=== PATIENT | female | born 1965 | race Caucasian/White ===

== ENCOUNTER → 2017-09-22 08:44 | Outpatient (CLI) | payer OTHER, SELFPAY ==
[2017-09-22 09:17] LABS: Absolute Lymphocyte Count 2.07 X10^3/ul (0.83-4.51); Basophil# 0.04 X10^3/uL; Basophil% 0.8 % (0-1); Eosinophils% 4.2 % (0-5); Hematocrit 44.2 % (37-47); Lymphocyte # 2.07 X10^3/ul (4.0); Lymphocyte % 43.8 % (19-41); Mean Corp Hgb Conc 31.7 g/gl (32-36); Mean Corpuscular Hgb 29.3 pg (27.0-32.0); Mean Corpuscular Volume 92.5 fL (81-99); Mean Platelet Vol. 10.2 fl (6.2-12.0); Monocyte# 0.39 X10^3/uL; Monocyte% 8.2 % (0-10); Neutrophil # 2.03 X10^3/uL (2.7-7.7); Platelet Count 272 K/mm3 (150-450); RBC Distribution Width CV 13.5 % (11.6-14.6); RBC Distribution Width SD 45.9 fl (35.1-43.9); Red Blood Count 4.78 M/mm3 (4.2-5.4); White Blood Count 4.7 K/mm3 (4.4-11.0)
[2017-09-22 09:26] LABS: POSITIVE COUNT NO; POSITIVE DIFFERENTIAL NO; POSITIVE MORPHOLOGY NO
[2017-09-22 09:27] LABS: Color, Urine Yellow (Yellow); Glucose, Dipstick Normal (Normal); Ketone-Dipstick Negative (Negative); Leukocyte Esterase-Dipstick 100 /ul (Negative); Nitrite-Dipstick Negative (Negative); Occult Blood-Urine Negative /ul (Negative); Protein-Dipstick Negative (Negative); Specific Gravity, Urine 1.015 (1.002-1.030); Urine Bilirubin Dipstick Negative (Negative); Urine Clarity Clear (Clear); Urine Urobilinogen Normal (Normal)
[2017-09-22 09:35] LABS: AST(SGOT) 21 U/L (15-37); Alanine Aminotransfer ALT/SGPT 34 U/L (13-56); Albumin, Serum 3.6 g/dL (3.2-5.0); Alkaline Phosphatase 87 U/L (45-117); Anion Gap 9 (5-15); BUN 15 mg/dL (7-18); BUN/Creat Ratio 20.6 RATIO (10-20); Calcium,Total 8.8 mg/dL (8.5-10.1); Chloride 102 mmol/L (98-107); Cholesterol 193 mg/dL (200); Creatinine, Serum 0.73 mg/dL (0.55-1.02); EST Glomerular Filtration Rate 89 mL/min (>60); Est Glom Filt Rate - Afr Amer 108 mL/min (>60); Globulin 3.6 g/dL (2.2-4.2); Glucose 86 mg/dL (74-106); High Density Lipoprotein 52 mg/dL; Potassium 4.1 mmol/L (3.5-5.1); Protein, Total 7.2 g/dL (6.4-8.2); Sodium Level 140 mmol/L (136-145); Triglycerides 148 mg/dL; Very Low Density Lipoprotein 30 mg/dL (5-40)
== END ==
PROVIDERS: Family Provider Family Medicine; PCP Family Medicine; Visit Provider Family Medicine
DX: Z00.00 Encounter for general adult medical examination without abnormal findings (principal)
CPT/HCPCS: 36415; 80053; 80061; 81002; 85025

== ENCOUNTER → 2017-11-22 08:33 | Outpatient (CLI) | payer OTHER, SELFPAY ==
--- NOTE | 2017-11-22 08:35 | BI_ITS ---
MAMMOGRAPHY - BILATERAL SCREENING REASON FOR EXAM: Female, 52 years old. Routine annual screening examination. PERTINENT HISTORY: Non-contributory. TECHNIQUE: Digital bilateral breast kimberly (3D mammographic acquisition) in the CC and MLO projections. 2-D mediolateral oblique (MLO) and craniocaudad (CC) views of both breasts were obtained. CAD: Full Field Digital Mammography with Computer Added Detection was performed. COMPARISON: Comparison is made with prior study dated November 19, 2016 and June 30, 2010. FINDINGS: Breast Composition: There are scattered areas of fibroglandular density. There are no dominant masses or suspicious calcifications. No other significant abnormalities are identified. There has been no significant change since the prior study. BI/SCREENING MAMM (CAD), BILAT IMPRESSION: Stable bilateral screening mammogram. Yearly follow-up mammogram recommended. (A) ASSESSMENT CATEGORY: BIRADS Category 1: Negative. A letter regarding these results will be sent to the patient by the facility within 30 days. Approximately 10% of breast cancers are not detected by mammography. A normal mammogram should not delay biopsy of a clinically suspicious abnormality. [id number] Electronically Signed: Alfie Cook MD at 10:03 EDT Tel [phone], Service support ,
== END ==
PROVIDERS: Family Provider Family Medicine; PCP Family Medicine; Visit Provider Family Medicine
DX: Z12.31 Encounter for screening mammogram for malignant neoplasm of breast (principal)
CPT/HCPCS: 77063; 77067

== ENCOUNTER 2017-12-14 05:55 | Day surgery (SDC) | payer OTHER, SELFPAY ==
[2017-12-14] VITALS (7 sets, daily range): BP systolic 109–145; BP diastolic 70–83; PULSE 62–65; RESP 16–18; TEMP 36.2–36.6; O2SAT 94–96; BMI 32.0
--- NOTE | 2017-12-14 07:30 | LES_PTH ---
PATIENT: DONNA SAVAGE LOC: [facility] [place][id number] AGE/SX: 52/F ROOM: RE12/14/[address]: Dr. Rubén Marinelli MD : 1965 BED: DIS: 12/14/2017 SPEC #: [id number] RECD: 12/14/17 10:23 STATUS: BEVERLY REJami #: [id number] MARLO: 12/14/17 07:[address]: Rubén Marinelli DEPT: SURGICAL PATHOLOGY RECD BY: Abilio Perrin ENTERED: 12/14/17 11:46 SP TYPE: Lesion OTHR DR: Dr. Albert Johnson MD Tissues: A - Skin of external ear, NOS B - Skin of external ear, NOS Procedures: Surgery Specimen Level III HEADER OPERATION: Excision lesion bilateral ears PRE-OP DIAGNOSIS: Bilateral ear lesions TISSUE SUBMITTED: A ? Left ear lesion, B ? Right ear lesion MICROSCOPIC DIAGNOSIS A. Left ear lesion, biopsy: Pieces of skin with underlying tissue with dermal fibrosis consistent with hypertrophic scar/keloid. B. Right ear lesion, biopsy: Pieces of skin with underlying tissue with dermal fibrosis consistent with hypertrophic scar/keloid. KALYAN:kayode 12/15/17 MICROSCOPIC DESCRIPTION Slides are reviewed. GROSS DESCRIPTION A - Received in fixative is one container labeled with the patient's name and designated left ear lesion. The specimen consists of three irregular fragments of brandon-pink skin that in aggregate measure 1.3 x 0.5 x 0.3 cm. The entire specimen is submitted in one cassette. B - Received in fixative is one container labeled with the patient's name and designated right ear lesion. The specimen consists of two pieces of brandon soft tissue that in aggregate measure 1 x 0.5 x 0.3 cm. The specimen is totally submitted in one cassette. / KALYAN:kayode 12/14/17 TC:5 CPT: 64647 x2
[2017-12-14] MEDS: Mupirocin Ointment 22gm Tube 1 APPLIC (08:11)
--- NOTE | 2017-12-14 08:32 | PCM.OPRPT ---
Problem List (1) Ear cysts Status: Chronic Report of Operation Date of Procedure: 12/14/17 Pre-Operative Diagnosis: infective cysts of lobule, right and left ears Post-Operative Diagnosis: infective cysts of lobule, right and left ears Surgery/Procedure Performed:: 1. excision ear lesions, right and left. 2. adjacent tissue transfer / complex closure, right and left ears Type of Anesthesia:: Local MAC Description of Procedure: on the day of the procedure, after appropriate informed consent was obtained, the patient was brought to the operating room and placed in supine position on the operating table. she was placed under MAC anesthesia, the right and left lobules were injected with lidocaine/epinephrine. the ears were prepped and draped in sterile fashion. and incision was made in the anterior left lobule, along its superior portion. the cystic, erythematous skin was excised in an elliptical fashion and the cyst was dissected deep and removed. additional cysts were removed as found with an iris scissor. a posterior incision was made in the area of a skin fistula and an additional cyst was removed. this was closed with 5-0 fast gut. the anterior ear tissue was undermined circumferentially and flaps were created for optimal closure. the wound was closed in multilayered fashion with 4-0 PDS and 5-0 prolene. the left ear was retracted and a draining fistula and cyst was resected in an elliptical fashion with a [place] blade and iris scissors. this was closed in multilayered fashion after skin flaps were created with 4-0 PDS and 5-0 prolene. the patient was awoken and transferred to the PACU in stable condition.
--- NOTE | 2017-12-14 08:40 | DCINST_ITS ---
- Discharge Diagnoses Current Active Problems: Current Active and Chronic Problems Ear cysts (Chronic) You will use the following diet at home:: No restrictions Discharge Activity: Return to Normal Activity Call your doctor if your incision/area has: Increased Pain/ Swelling Additional Dressing/Incision Instructions:: tylenol for pain Allergies/Adverse Reactions: Allergies ENVIRONMENTAL Allergy (Uncoded 12/08/17 14:08) Other SNEEZING, WATERY EYES Medications to take at Discharge Clonazepam [Klonopin] 1 mg PO BID PRN PRN 12/08/17 Escitalopram Oxalate [Lexapro] 20 mg PO DAILY 12/08/17 Fluticasone 0.05% [Flonase Nasal [place]] 2 spray NASAL DAILY 12/08/17 Multivitamin [Multiple Vitamins] 1 each PO DAILY 12/08/17 [place]-3 Fatty Acids [Fish Oil] 800 mg PO DAILY 12/08/17 Primary Care Physician: Albert Johnson MD [Primary Care Provider] - Test Results: Test results from this visit will be discussed in further detail at your follow- up appointment, if applicable. Please Follow Up With: Tariq Marinelli MD When: 1 week
[2017-12-14] MEDS: Acetaminophen/Codeine #3 Tablet 1 TABLET PO (09:17)
== END 2017-12-14 09:42 | disposition home or self-care (01) ==
LOC: SDC 05:55 → AC 05:56
PROVIDERS: Family Provider Family Medicine; PCP Family Medicine; Visit Provider Otolaryngology
PROC: (CPT 14060; principal; 2017-12-14 07:20)
DX: H61.893 Other specified disorders of external ear, bilateral (principal); L98.8 Other specified disorders of the skin and subcutaneous tissue; Z79.899 Other long term (current) drug therapy; K58.9 Irritable bowel syndrome, unspecified; L02.03 Carbuncle of face
CPT/HCPCS: 14060; 88304; 88305; J7120

== ENCOUNTER → 2018-10-25 | Outpatient (CLI) | payer OTHER, SELFPAY ==
[2017-12-14 06:12] VITALS: BMI 32.0
[2018-10-25 07:33] LABS: Absolute Neutrophil Count 2.7 X10^3/uL (2.0-7.7); Basophil# 0.03 X10^3/uL; Basophil% 0.5 % (0-1); Eosinophil# 0.31 X10^3/uL; Hematocrit 45.3 % (37-47); Hemoglobin 14.6 g/dl (12.0-15.0); Lymphocyte % 41.8 % (19-41); Mean Corp Hgb Conc 32.2 g/gl (32-36); Mean Corpuscular Hgb 28.7 pg (27.0-32.0); Mean Corpuscular Volume 89.2 fL (81-99); Mean Platelet Vol. 10.2 fl (6.2-12.0); Monocyte# 0.61 X10^3/uL; Monocyte% 9.8 % (0-10); Neutrophil # 2.66 X10^3/uL (2.7-7.7); Neutrophil % 42.7 % (47-70); Platelet Count 303 K/mm3 (150-450); RBC Distribution Width CV 13.6 % (11.6-14.6); Red Blood Count 5.08 M/mm3 (4.2-5.4); White Blood Count 6.2 K/mm3 (4.4-11.0)
[2018-10-25 07:38] LABS: POSITIVE COUNT NO; POSITIVE DIFFERENTIAL NO; POSITIVE MORPHOLOGY NO
[2018-10-25 07:53] LABS: Color, Urine Yellow (Yellow); Glucose, Dipstick Normal (Normal); Ketone-Dipstick Negative (Negative); Leukocyte Esterase-Dipstick 100 /ul (Negative); Nitrite-Dipstick Negative (Negative); Occult Blood-Urine Negative /ul (Negative); Protein-Dipstick Negative (Negative); Urine Bilirubin Dipstick Negative (Negative); Urine Clarity Sl. Cloudy (Clear); Urine Urobilinogen Normal (Normal)
[2018-10-25 08:07] LABS: ALB/GLOB Ratio 1.1 RATIO (0.9-2.4); AST(SGOT) 20 U/L (15-37); Alanine Aminotransfer ALT/SGPT 22 U/L (13-56); Albumin, Serum 3.8 g/dL (3.2-5.0); Alkaline Phosphatase 91 U/L (45-117); Anion Gap 6 (5-15); BUN 10 mg/dL (7-18); BUN/Creat Ratio 12.5 RATIO (10-20); Calcium,Total 8.8 mg/dL (8.5-10.1); Chloride 104 mmol/L (98-107); Cholesterol 201 mg/dL (200); EST Glomerular Filtration Rate 79 mL/min (>60); Est Glom Filt Rate - Afr Amer 96 mL/min (>60); Globulin 3.6 g/dL (2.2-4.2); Glucose 102 mg/dL (74-106); High Density Lipoprotein 41 mg/dL; Potassium 4.1 mmol/L (3.5-5.1); Protein, Total 7.4 g/dL (6.4-8.2); Sodium Level 139 mmol/L (136-145); Triglycerides 183 mg/dL; Very Low Density Lipoprotein 37 mg/dL (5-40)
== END | disposition home or self-care (01) ==
PROVIDERS: Family Provider Family Medicine; PCP Family Medicine; Referring Provider Family Medicine
DX: Z00.00 Encounter for general adult medical examination without abnormal findings (principal)
CPT/HCPCS: 36415; 80053; 80061; 81002; 85025

== ENCOUNTER → 2018-11-23 | Outpatient (CLI) | payer OTHER, SELFPAY ==
[2017-12-14 06:12] VITALS: BMI 32.0
--- NOTE | 2018-11-23 10:18 | BI_ITS ---
MAMMOGRAPHY - BILATERAL SCREENING REASON FOR EXAM: Female, 53 years old. Routine annual screening examination. PERTINENT HISTORY: Non-contributory. TECHNIQUE: Digital bilateral breast attila (3D mammographic acquisition) in the CC and MLO projections. 2-D mediolateral oblique (MLO) and craniocaudad (CC) views of both breasts were obtained. CAD: Full Field Digital Mammography with Computer Added Detection was performed. COMPARISON: Comparison is made with prior study dated November 22, 2017 and November 19, 2016. FINDINGS: Breast Composition: The breasts are almost entirely fatty. There are no dominant masses or suspicious calcifications. No other significant abnormalities are identified. There has been no significant change since the prior study. BI/SCREEN MAMM (CAD) W/ATTILA BILAT IMPRESSION: Stable bilateral screening mammogram. Yearly follow-up mammogram recommended. (A) ASSESSMENT CATEGORY: BIRADS Category 1: Negative. A letter regarding these results will be sent to the patient by the facility within 30 days. Approximately 10% of breast cancers are not detected by mammography. A normal mammogram should not delay biopsy of a clinically suspicious abnormality. [id number] Electronically Signed: Alfie Cook, at 12:32 EDT , Service support ,
== END | disposition home or self-care (01) ==
LOC: OPBI 10:15
PROVIDERS: Family Provider Family Medicine; PCP Family Medicine; Referring Provider Family Medicine; Visit Provider Family Medicine
DX: Z12.31 Encounter for screening mammogram for malignant neoplasm of breast (principal)
CPT/HCPCS: 77063; 77067

== ENCOUNTER → 2019-11-22 07:06 | Outpatient (CLI) | payer OTHER, SELFPAY ==
[2019-11-22 07:36] LABS: Absolute Lymphocyte Count 3.27 X10^3/uL (0.83-4.51); Basophil# 0.03 X10^3/uL; Basophil% 0.5 % (0-1); Eosinophil# 0.22 X10^3/uL; Eosinophils% 3.6 % (0-5); Hematocrit 46.3 % (37-47); Hemoglobin 14.6 g/dL (12.0-15.0); Lymphocyte # 3.27 X10^3/ul (4.0); Lymphocyte % 53.4 % (19-41); Mean Corp Hgb Conc 31.5 g/dL (32-36); Mean Corpuscular Hgb 29.2 pg (27.0-32.0); Mean Corpuscular Volume 92.6 fL (81-99); Mean Platelet Vol. 10.2 fl (6.2-12.0); Monocyte# 0.63 X10^3/uL; Monocyte% 10.3 % (0-10); NRBC Flagged by Analyzer 0 % (0-5); Neutrophil # 1.96 X10^3/uL (2.7-7.7); Platelet Count 286 K/mm3 (150-450); RBC Distribution Width CV 13.2 % (11.6-14.6); RBC Distribution Width SD 44.2 fl (35.1-43.9); White Blood Count 6.1 K/mm3 (4.4-11.0)
[2019-11-22 08:08] LABS: ALB/GLOB Ratio 1.1 RATIO (0.9-2.4); AST(SGOT) 16 U/L (15-37); Alanine Aminotransfer ALT/SGPT 23 U/L (13-56); Albumin, Serum 4.1 g/dL (3.2-5.0); Alkaline Phosphatase 86 U/L (45-117); Anion Gap 6 (5-15); BUN 14 mg/dL (7-18); BUN/Creat Ratio 18.1 RATIO (10-20); Calcium,Total 8.8 mg/dL (8.5-10.1); Chloride 101 mmol/L (98-107); Cholesterol 179 mg/dL (200); Creatinine, Serum 0.77 mg/dL (0.55-1.02); EST Glomerular Filtration Rate 82 mL/min (>60); Est Glom Filt Rate - Afr Amer 99 mL/min (>60); Globulin 3.6 g/dL (2.2-4.2); Glucose 96 mg/dL (74-106); High Density Lipoprotein 39 mg/dL; Potassium 3.4 mmol/L (3.5-5.1); Protein, Total 7.7 g/dL (6.4-8.2); Sodium Level 136 mmol/L (136-145); Triglycerides 158 mg/dL; Very Low Density Lipoprotein 32 mg/dL (5-40)
[2019-11-22 08:28] LABS: Color, Urine Yellow (Yellow); Glucose, Dipstick Normal (Normal); Ketone-Dipstick Negative (Negative); Leukocyte Esterase-Dipstick Negative /ul (Negative); Nitrite-Dipstick Negative (Negative); Occult Blood-Urine Negative /ul (Negative); Protein-Dipstick Negative (Negative); Urine Bilirubin Dipstick Negative (Negative); Urine Clarity Sl. Cloudy (Clear); Urine Urobilinogen Normal (Normal)
== END ==
PROVIDERS: PCP Family Medicine; Referring Provider Family Medicine; Visit Provider Family Medicine
DX: Z00.00 Encounter for general adult medical examination without abnormal findings (principal)
CPT/HCPCS: 36415; 80053; 80061; 81002; 85025

== ENCOUNTER → 2019-11-28 08:04 | Outpatient (CLI) | payer OTHER, SELFPAY ==
[2017-12-14 06:12] VITALS: BMI 32.0
--- NOTE | 2019-11-28 08:06 | BI_ITS ---
MAMMOGRAPHY - BILATERAL SCREENING REASON FOR EXAM: Female, 54 years old. Routine annual screening examination. PERTINENT HISTORY: Non-contributory. TECHNIQUE: Digital bilateral breast attila (3D mammographic acquisition) in the CC and MLO projections. 2-D mediolateral oblique (MLO) and craniocaudad (CC) views of both breasts were obtained. CAD: Full Field Digital Mammography with Computer Added Detection was performed. COMPARISON: Comparison is made with prior study dated November 23, 2018 and November 22, 2017. FINDINGS: Breast Composition: The breasts are almost entirely fatty. There are no dominant masses or suspicious calcifications. No other significant abnormalities are identified. There has been no significant change since the prior study. BI/SCREEN MAMM (CAD) W/ATTILA BILAT IMPRESSION: Stable bilateral screening mammogram. Yearly follow-up mammogram recommended. (A) ASSESSMENT CATEGORY: BIRADS Category 1: Negative. A letter regarding these results will be sent to the patient by the facility within 30 days. Approximately 10% of breast cancers are not detected by mammography. A normal mammogram should not delay biopsy of a clinically suspicious abnormality. [id number] Electronically Signed: Alfie Cook, at 9:21 EDT , Service support ,
== END ==
PROVIDERS: PCP Family Medicine; Referring Provider Family Medicine; Visit Provider Family Medicine
DX: Z12.31 Encounter for screening mammogram for malignant neoplasm of breast (principal)
CPT/HCPCS: 77063; 77067

== ENCOUNTER → 2020-12-10 07:32 | Outpatient (CLI) | payer OTHER, SELFPAY ==
--- NOTE | 2020-12-10 07:36 | BI_ITS ---
MAMMOGRAPHY - BILATERAL SCREENING REASON FOR EXAM: Female, 55 years old. Routine annual screening examination. PERTINENT HISTORY: Non-contributory. TECHNIQUE: Digital bilateral breast attila (3D mammographic acquisition) in the CC and MLO projections. 2-D mediolateral oblique (MLO) and craniocaudad (CC) views of both breasts were obtained. CAD: Full Field Digital Mammography with Computer Added Detection was performed. COMPARISON: Comparison is made with prior study 11/28/2019 and 11/23/2018. FINDINGS: Breast Composition: There are scattered areas of fibroglandular density. There are no dominant masses or suspicious calcifications. Stable benign-appearing bilateral axillary lymph nodes. No other significant abnormalities are identified. There has been no significant change since the prior study. BI/SCRN MAMM (CAD)W/ATTILA BILAT IMPRESSION: Stable bilateral screening mammogram. Yearly follow-up mammogram recommended. (A) ASSESSMENT CATEGORY: BIRADS Category 2: Benign. A letter regarding these results will be sent to the patient by the facility within 30 days. Approximately 10% of breast cancers are not detected by mammography. A normal mammogram should not delay biopsy of a clinically suspicious abnormality. [id number] Electronically Signed: Alfie Cook MD at 8:53 EDT , Service support ,
== END ==
PROVIDERS: PCP Family Medicine; Referring Provider Family Medicine; Visit Provider Family Medicine
DX: Z12.31 Encounter for screening mammogram for malignant neoplasm of breast (principal)
CPT/HCPCS: 77063; 77067

== ENCOUNTER → 2021-01-02 06:59 | Outpatient (CLI) | payer OTHER, SELFPAY ==
[2017-12-14 06:12] VITALS: BMI 32.0
[2021-01-02 08:17] LABS: Hematocrit 46.4 % (37-47); Hemoglobin 14.7 g/dL (12.0-15.0); Mean Corp Hgb Conc 31.7 g/dL (32-36); Mean Corpuscular Hgb 28.1 pg (27.0-32.0); Mean Corpuscular Volume 88.5 fL (81-99); Platelet Count 305 K/mm3 (150-450); RBC Distribution Width CV 13.4 % (11.6-14.6); RBC Distribution Width SD 43.6 fl (35.1-43.9); Red Blood Count 5.24 M/mm3 (4.2-5.4); White Blood Count 6.4 K/mm3 (4.4-11.0)
[2021-01-02 08:44] LABS: ALB/GLOB Ratio 1.2 RATIO (0.9-2.4); AST(SGOT) 28 U/L (15-37); Alanine Aminotransfer ALT/SGPT 53 U/L (13-56); Albumin, Serum 4.1 g/dL (3.2-5.0); Alkaline Phosphatase 88 U/L (45-117); Anion Gap 6 (5-15); BUN 12 mg/dL (7-18); BUN/Creat Ratio 20.3 RATIO (10-20); Calcium,Total 9.1 mg/dL (8.5-10.1); Chloride 102 mmol/L (98-107); Cholesterol 240 mg/dL (200); Creatinine, Serum 0.59 mg/dL (0.55-1.02); EST Glomerular Filtration Rate 112 mL/min (>60); Est Glom Filt Rate - Afr Amer 135 mL/min (>60); Globulin 3.5 g/dL (2.2-4.2); Glucose 92 mg/dL (74-106); High Density Lipoprotein 41 mg/dL; Potassium 3.8 mmol/L (3.5-5.1); Protein, Total 7.6 g/dL (6.4-8.2); Sodium Level 139 mmol/L (136-145); Triglycerides 189 mg/dL; Very Low Density Lipoprotein 38 mg/dL (5-40)
== END ==
PROVIDERS: PCP Family Medicine; Referring Provider Family Medicine; Visit Provider Family Medicine
DX: Z12.31 Encounter for screening mammogram for malignant neoplasm of breast (principal); Z13.6 Encounter for screening for cardiovascular disorders
CPT/HCPCS: 36415; 80053; 80061; 85025; 85027

== ENCOUNTER 2021-03-01 14:26 | Emergency (ER) | payer OTHER, SELFPAY ==
[2021-03-01 14:27] VITALS: BP 145/89; PULSE 80; RESP 18; TEMP 36.4; O2SAT 98; BMI 31.7
--- NOTE | 2021-03-01 15:21 | CT_ITS ---
STUDY: CT CERVICAL SPINE WITHOUT CONTRAST REASON FOR EXAM: Female, 56 years old. trauma RADIATION DOSAGE (If Supplied By Facility): CTDIvol = ( 16.21 ) mGy, DLP = ( 257.98 ) mGycm TECHNIQUE: The patient was scanned in a multi detector CT scanner. High resolution transaxial imaging was performed. Sagittal and coronal images were reconstructed. Individualized dose optimization techniques were used for this CT. COMPARISON: None FINDINGS: There is straightening of the normal cervical lordosis. There are no demonstrated fractures of the cervical spine. There is multilevel endplate spondylosis of the vertebrae. There is multi-level degenerative disc disease with multi-level disc space narrowing. Normal visualized paraspinous soft tissue structures. CT/Spine Cervical without Contras IMPRESSION: No demonstrated fractures. Multilevel degenerative changes. Electronically Signed: Maritza Arita MD at 15:55 EDT Tel , Service support ,
--- NOTE | 2021-03-01 15:21 | RAD_ITS ---
STUDY: X-RAY - THORACIC SPINE REASON FOR EXAM: Female, 56 years old. trauma TECHNIQUE: 3 view(s) of the thoracic spine were obtained. COMPARISON: None. FINDINGS: Normal kyphosis of the thoracic spine. There is no substantial scoliosis. There is multilevel endplate spondylosis of the thoracic vertebrae. There is multilevel disc space narrowing of the thoracic spine. RAD/Thoracic Spine 3 Views IMPRESSION: No demonstrated fractures Electronically Signed: Maritza Ariat MD at 16:04 EDT Tel , Service support ,
--- NOTE | 2021-03-01 15:45 | EDS_ITS ---
HPI HPI - Fall History of Present Illness Chief Complaint: Fall Informant: patient Narrative Narrative: Patient was standing on a ladder. It was wooden and the rungs broke. She fell backwards and landed on her back. Rolled up on her neck. She has an abrasion of her left gonzales but states it does not really hurt and she can bear weight easily. She has an abrasion on the back of the left shoulder but motion is fine. She does have some soreness in her upper thoracic back in the lower part of her neck. No headache. She never lost consciousness. She is on no blood thinners. She has never had numbness tingling or weakness distally. No trouble breathing. Motion makes a little bit worse and rest makes it better. PFSH PFSH Medical History no medical history Home Medications clonazepam 1 mg PO BID PRN PRN 12/08/17 [History Last Taken 12/14/17 05:00] escitalopram oxalate 20 mg PO DAILY 12/08/17 [History Last Taken Unknown] fluticasone propionate 2 spray NASAL DAILY 12/08/17 [History Last Taken Unknown] multivitamin [Multiple Vitamins] 1 ea PO DAILY 12/08/17 [History Last Taken Unknown] omega 3-dnp-xza-fish oil [Fish Oil] 800 mg PO DAILY 12/08/17 [History Last Taken Unknown] Allergy/AdvReac Type Severity Reaction Status Date / Time ENVIRONMENTAL Allergy Other Uncoded 03/01/21 14:56 Social History Smoking Status: Never smoker ROS ROS ED Constitutional Constitutional ED: Denies fever(s) or subjective Eyes Eyes: Denies blurry vision or change in vision ENT ENT ED: Denies rhinorrhea Cardiovascular Cardiovascular: Denies chest pain or palpitations Respiratory/Chest Respiratory/Chest: Denies cough or dyspnea Gastrointestinal Gastrointestinal: Denies abdominal pain, nausea or vomiting Genitourinary Genitourinary ED: Denies hematuria Musculoskeletal Musculoskeletal: Reports back pain and neck pain Integumentary Reports Abrasions Neurologic Neurologic: Denies headache(s), paresthesias or weakness Hematologic/Lymphatic Hematologic/Lymphatic: Denies easy bleeding or easy bruising Allergic/Immunologic Allergic/Immunologic ED: Denies urticaria EXAM Physical Exam Const Vital Signs: 03/01/21 14:27 03/01/21 14:57 Temperature 97.6 F L Temperature Source Temporal Pulse Rate 80 Respiratory Rate 18 Respiratory Effort Normal Non-Labored Blood Pressure 145/89 H Blood Pressure Mean 107 Pulse Ox 98 Oxygen Delivery Method Room Air Positive well nourished and well developed General Appearance ED: well developed and NAD HEENT Reports normocephalic atraumatic; Negative for trauma or tenderness Eyes General Eye ED: Negative for scleral icterus Neck no lymphadenopathy Neck Narrative: Patient does have mild tenderness at the lower cervical spine. This includes middle as well as both sides. No deformity. Chest Wall inspection of chest normal and palpation of chest normal Resp normal respiratory effort and clear to auscultation bilaterally Cardio regular rate, regular rhythm and no murmurs GI non-tender and non-distended Palpation: soft Back/Spine no CVA tenderness Back/Spine Narrative: Patient does have some mild tenderness diffusely in the upper thoracic spine. No step-off or crepitance. No abrasion or contusion at this time. Extremity Extremity Narrative: Abrasion to anterior left gonzales but no tenderness or defo rmity. There is an abrasion to the back of the upper portion of the shoulder but her range of motion is good. No bony tenderness. No scapular tenderness. Neuro oriented x3 Sensorium / Orientation: alert Psych mental status grossly normal Skin Trauma: abrasion MDM MDM MDM Narrative Medical decision making narrative: CT of the neck and thoracic spine x-ray showed no acute fracture. Patient will use ice rest [id number] meds. If she develops any worsening or new areas of pain, numbness tingling, trouble breathing or other concern she should return. Radiography Diagnostic Testing: Clinical Impression(s) from Imaging Studies Cervical Spine CT 03/01/21 15:21 IMPRESSION: No demonstrated fractures. Multilevel degenerative changes. Electronically Signed: Maritza Arita MD at 15:55 EDT Tel , Service support , Thoracic Spine X-Ray 03/01/21 15:21 IMPRESSION: No demonstrated fractures Electronically Signed: Maritza Arita MD at 16:04 EDT Tel , Service support , Discharge Plan Triage Chief Complaint: Fall ED Provider: Jamaal Hebert Dx/Rx/DC Orders Clinical Impression: Fall from ladder, Cervical muscle strain, Strain of thoracic spine Instructions: ED Back Sprain/Strain Prescriptions: No Action multivitamin [Multiple Vitamins] 1 EACH tablet 1 ea PO DAILY RF: 0 clonazepam 1 MG tablet 1 mg PO BID PRN PRN (Reason: Anxiety) RF: 0 fluticasone propionate 1 SPRAY Nasal.Sry 2 spray NASAL DAILY RF: 0 escitalopram oxalate 20 MG tablet 20 mg PO DAILY RF: 0 omega 6-vhy-adx-fish oil [Fish Oil] 500 MG Capsule.Dr 800 mg PO DAILY RF: 0 Primary Care Provider: Albert Johnson Referrals: Albert Johnson MD [Primary Care Provider] - 3-5 Days if not improving Disposition Disposition: Home, Self Care
[2021-03-01 17:12] VITALS: PULSE 75; RESP 18; O2SAT 95
== END 2021-03-01 17:14 | disposition home or self-care (01) ==
PROVIDERS: Emergency Provider Emergency Medicine; PCP Family Medicine
DX: S16.1XXA Strain of muscle, fascia and tendon at neck level, initial encounter (principal); S29.012A Strain of muscle and tendon of back wall of thorax, initial encounter; S40.212A Abrasion of left shoulder, initial encounter; S80.812A Abrasion, left lower leg, initial encounter; W11.XXXA Fall on and from ladder, initial encounter; Y93.9 Activity, unspecified; Y92.9 Unspecified place or not applicable; Y99.9 Unspecified external cause status; Z79.899 Other long term (current) drug therapy
CPT/HCPCS: 72072; 72125; 99282

== ENCOUNTER → 2022-01-01 | Outpatient (CLI) | payer OTHER, SELFPAY ==
--- NOTE | 2022-01-01 08:13 | BI_ITS ---
MAMMOGRAPHY - BILATERAL SCREENING REASON FOR EXAM: Female, 56 years old. Routine annual screening examination. PERTINENT HISTORY: Non-contributory. TECHNIQUE: Digital bilateral breast attila (3D mammographic acquisition) in the CC and MLO projections. 2-D mediolateral oblique (MLO) and craniocaudad (CC) views of both breasts were obtained. CAD: Full Field Digital Mammography with Computer Added Detection was performed. COMPARISON: Comparison is made with prior study dated 12/10/2020 and 11/28/2019. FINDINGS: Breast Composition: There are scattered areas of fibroglandular density. There are no dominant masses or suspicious calcifications. No other significant abnormalities are identified. There has been no significant change since the prior study. BI/SCRN MAMM (CAD)W/ATTILA BILAT IMPRESSION: Stable bilateral screening mammogram. Yearly follow-up mammogram recommended. (A) ASSESSMENT CATEGORY: BIRADS Category 1: Negative. A letter regarding these results will be sent to the patient by the facility within 30 days. Approximately 10% of breast cancers are not detected by mammography. A normal mammogram should not delay biopsy of a clinically suspicious abnormality. [id number] Electronically Signed: Alfie Cook MD at 8:44 EDT ,
== END | disposition home or self-care (01) ==
LOC: OPBI 08:11
PROVIDERS: PCP Family Medicine; Visit Provider Family Medicine
DX: Z12.31 Encounter for screening mammogram for malignant neoplasm of breast (principal)
CPT/HCPCS: 77063; 77067

== ENCOUNTER → 2022-01-15 | Outpatient (CLI) | payer OTHER, SELFPAY ==
[2022-01-15 07:21] LABS: Absolute Lymphocyte Count 3.23 X10^3/uL (0.83-4.51); Absolute Neutrophil Count 3.5 X10^3/uL (2.0-7.7); Basophil# 0.05 X10^3/uL; Basophil% 0.6 % (0-1); Eosinophil# 0.42 X10^3/uL; Eosinophils% 5.4 % (0-5); Hematocrit 43.7 % (37-47); Hemoglobin 14.1 g/dL (12.0-15.0); Lymphocyte # 3.23 X10^3/ul (0.83-4.51); Lymphocyte % 41.2 % (19-41); Mean Corp Hgb Conc 32.3 g/dL (32-36); Mean Corpuscular Hgb 28.7 pg (27.0-32.0); Mean Corpuscular Volume 88.8 fL (81-99); Mean Platelet Vol. 9.9 fl (6.2-12.0); Monocyte# 0.67 X10^3/uL; Monocyte% 8.5 % (0-10); NRBC Flagged by Analyzer 0 % (0-5); Neutrophil # 3.45 X10^3/uL (2.7-7.7); Platelet Count 292 K/mm3 (150-450); RBC Distribution Width CV 13.5 % (11.6-14.6); Red Blood Count 4.92 M/mm3 (4.2-5.4); White Blood Count 7.8 K/mm3 (4.4-11.0)
[2022-01-15 07:47] LABS: ALB/GLOB Ratio 1.1 RATIO (0.9-2.4); AST(SGOT) 19 U/L (15-37); Alanine Aminotransfer ALT/SGPT 26 U/L (13-56); Albumin, Serum 3.7 g/dL (3.2-5.0); Alkaline Phosphatase 90 U/L (45-117); Anion Gap 4 (5-15); BUN 12 mg/dL (7-18); BUN/Creat Ratio 17.7 RATIO (10-20); Calcium,Total 9.2 mg/dL (8.5-10.1); Chloride 105 mmol/L (98-107); Cholesterol 193 mg/dL (200); Creatinine, Serum 0.68 mg/dL (0.55-1.02); EST Glomerular Filtration Rate 95 mL/min (>60); Est Glom Filt Rate - Afr Amer 115 mL/min (>60); Globulin 3.4 g/dL (2.2-4.2); Glucose 101 mg/dL (74-106); High Density Lipoprotein 40 mg/dL; Potassium 3.8 mmol/L (3.5-5.1); Protein, Total 7.1 g/dL (6.4-8.2); Sodium Level 138 mmol/L (136-145); Triglycerides 211 mg/dL; Very Low Density Lipoprotein 42 mg/dL (5-40)
== END | disposition home or self-care (01) ==
LOC: LAB 07:00
PROVIDERS: PCP Family Medicine; Referring Provider Family Medicine; Visit Provider Family Medicine
DX: I10 Essential (primary) hypertension (principal); E78.2 Mixed hyperlipidemia
CPT/HCPCS: 36415; 80053; 80061; 85025

== ENCOUNTER → 2023-04-06 | Outpatient (CLI) | payer OTHER, SELFPAY ==
--- NOTE | 2023-04-06 12:32 | BI_ITS ---
MAMMOGRAPHY - BILATERAL SCREENING REASON FOR EXAM: Female, 58 years old. Routine annual screening examination. PERTINENT HISTORY: Non-contributory. TECHNIQUE: Digital bilateral breast attila (3D mammographic acquisition) in the CC and MLO projections. 2-D mediolateral oblique (MLO) and craniocaudad (CC) views of both breasts were obtained. CAD: Full Field Digital Mammography with Computer Added Detection was performed. COMPARISON: Comparison is made with prior study dated January 01, 2022 and December 10, 2020. FINDINGS: Breast Composition: There are scattered areas of fibroglandular density. There are no dominant masses or suspicious calcifications. Stable fat-containing bilateral axillary lymph nodes. No other significant abnormalities are identified. There has been no significant change since the prior study. BI/SCRN MAMM (CAD)W/ATTILA BILAT IMPRESSION: Stable bilateral screening mammogram. Yearly follow-up mammogram recommended. (A) ASSESSMENT CATEGORY: BIRADS Category 2: Benign. A letter regarding these results will be sent to the patient by the facility within 30 days. Approximately 10% of breast cancers are not detected by mammography. A normal mammogram should not delay biopsy of a clinically suspicious abnormality. [id number] Electronically Signed: Alfie Cook MD at 13:32 EST ,
== END | disposition home or self-care (01) ==
LOC: OPBI 12:31
PROVIDERS: PCP Family Medicine; Referring Provider Family Medicine; Visit Provider Family Medicine
DX: Z12.31 Encounter for screening mammogram for malignant neoplasm of breast (principal)
CPT/HCPCS: 77063; 77067

== ENCOUNTER → 2024-04-14 | Outpatient (CLI) | payer OTHER, SELFPAY | END | disposition home or self-care (01) | LOC: OPBI 12:39 | PROVIDERS: PCP Family Medicine; Referring Provider Family Medicine; Visit Provider Family Medicine | DX: Z12.31 Encounter for screening mammogram for malignant neoplasm of breast (principal) | CPT/HCPCS: 77063; 77067 ==

== ENCOUNTER 2025-03-02 06:00 | Day surgery (SDC) | payer OTHER, SELFPAY ==
[2025-03-02] VITALS (8 sets, daily range): BP systolic 90–133; BP diastolic 42–73; PULSE 63–68; RESP 12–20; TEMP 36.1–36.3; O2SAT 95–100; BMI 29.8
[2025-03-02] MEDS: Lactated Ringers 1,000 ML 15 ML IV (06:24)
--- NOTE | 2025-03-02 06:31 | PCM.PRE.AN2 ---
ASA Classification* ASA Classification ASA Classification: 2 Assessment & Plan Anesthesia* Anesthesia Assessment Anesthesia Assessment: Discussed sedation and/or anesthesia options, risks, benefits, and alternatives with patient/parents/legal guardian/POA. Questions invited. The patient/parents/legal guardian/POA seems to understand and agrees to proceed with anesthesia plan. Reviewed the physical assessment, medical history, allergy history and patient home medications list prior to surgery/procedure/anesthetic and documented any changes. Performed airway and anesthesia risk assessments. Anesthesia Type Anesthesia Type: MAC History Source History Obtained from:: Patient and Chart Anesthesia Focused Assessment* Temperature: 97 F Pulse Rate: 65 Blood Pressure: 133/73 Respiratory Rate: 16 Pulse Ox: 98 Oxygen Delivery Method: Room Air Airway Assessment Mouth opens: >3 cm Mallampati Score: II Teeth Condition: Intact Neck Range of motion (ROM): Full ROM Labs Anesthesia Preop lab: CBC WBC, (4.4-11.0) 7.8 K/mm3 01/15/22, 07:03 RBC, (4.2-5.4) 4.92 M/mm3 01/15/22, 07:03 Hgb, (12.0-15.0) 14.1 g/dL 01/15/22, 07:03 Hct, (37-47) 43.7 % 01/15/22, 07:03 Plt Count, (150-450) 292 K/mm3 01/15/22, 07:03 CHEMISTRY Potassium, (3.5-5.1) 3.8 mmol/L 01/15/22, 07:03 Sodium, (136-145) 138 mmol/L 01/15/22, 07:03 BUN, (7-18) 12 mg/dL 01/15/22, 07:03 Creatinine, (0.55-1.02) 0.68 mg/dL 01/15/22, 07:03 Glucose, (74-106) 101 mg/dL 01/15/22, 07:03 TSH, (0.358-3.74) 4.06 uIU/mL H 10/23/16, 07:01 COAG Pre-Assessment Diagnosis/Proposed Procedure Planned Operative Procedure(s): COLONOSCOPY Anesthesia History 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 When Was Last Pacemaker Check QUESTION #4 FULL TEXT: You/Your Family Experience fever (hyperthermia) with Anesthesia Last Oral Intake Last Oral intake: Last Oral Intake NPO since 03:30 03/02/25 06:22 Meds taken in AM with sips of Yes 03/02/25 06:22 water? Meds patient instructed to take am of surgery Any additional information?: Yes NPO since: 03:15 (Patient finished prep at 3:15 AM.) Meds taken in AM with sips of water?: Yes PONV PONV - victorian literature professor: PONV - victorian literature professor Female Yes 02/26/25 10:45 HX of Motion Sickness No 02/26/25 10:45 HX of N/V After Surgery Yes 02/26/25 10:45 Non-Smoker Yes 02/26/25 10:45 Duration of Surgery greater No 02/26/25 10:45 than 60 minutes Number of Risk Factors 3 02/26/25 10:45 PONV Score Moderate Risk 02/26/25 10:45 Height & Weight Height & Weight: Anesthesia: Height & Weight Height 5 ft 4 in 03/02/25 06:22 Weight: 78.8 kg 03/02/25 06:22 Body Mass Index (BMI) 29.8 03/02/25 06:22 Respiratory Assessment Respiratory Assessment - victorian literature professor: Respiratory Tract Infection Hx - victorian literature professor Hx Respiratory Tract Infection No 02/26/25 10:45 STOP Sleep Apnea STOP Sleep Apnea - victorian literature professor: STOP Sleep Apnea - victorian literature professor Hx Hypertension Yes 02/26/25 10:45 Hx Sleep Apnea No 02/26/25 10:45 CPAP BIPAP Do you snore loudly (louder No 02/26/25 10:45 than talking or can be heard Do you often feel tired/ No 02/26/25 10:45 fatigued/ sleepy during daytime? Has anyone observed you stop No 02/26/25 10:45 breathing during sleep? STOP Results Negative 02/26/25 10:45 QUESTION #5 FULL TEXT : Do you snore loudly (louder than talking or can be heard through closed doors)? Tobacco Use History Tobacco Use History - victorian literature professor: Tobacco Use History - victorian literature professor Tobacco Use Smoking Status Never smoker 02/26/25 10:45 Hx Tobacco Use No 02/26/25 10:45 Years Smoking Packs Smoked per Day Smoking Cessation Date was within the last 15 years Hx Smoking Cessation Date Hx Smoking Cessation Counseling Hematologic Medial History Hematologic Hx - victorian literature professor: Hematologic Medical Hx - volunteer specialist Hx of Blood Transfusion No 02/26/25 10:45 Hx of Transfusion in last 3 No 02/26/25 10:45 Months Date of Last Transfusion (if within last 3 months) Ever experience any problems No 02/26/25 10:45 with transfusion(s)? Specify any problems Hx of Preganancy in last 3 No 02/26/25 10:45 Months Nurse Filling Out Transfusion VLEHLIGNITE 02/26/25 10:45 & Questions: Date: 02/26/25 02/26/25 10:45 Time: 10:50 02/26/25 10:45 Patient unable to answer at this time (ie. confused, unrespo /Reproduction History /Reproductive History - victorian literature professor: /Reproductive Hx- victorian literature professor Hx Now No 02/26/25 10:45 Gestational Age (in weeks): EDC: Hx Hx Para Hx Section SAB Active Medications Active Medications: Current Medications Generic Name Dose Route Start Last Admin Trade Name Freq PRN Reason Stop Dose Admin Lactated Ringer's 1,000 mls @ 15 mls/hr 03/02/25 06:15 03/02/25 06:24 IV 15 mls/hr .Q48H TIM Administration PFSH Medical History Wears glasses Depression Anxiety Gastric reflux Non-smoker Hypertension Home Medications ?Medication ?Instructions ?Recorded ?Last Taken ?Type fluticasone propionate 50 2 spray DAILY ENVIRONMENTAL 12/08/17 Unknown History mcg/actuation nasal ALLERGIES spray,suspension multivitamin (Multiple Vitamins 1 ea PO DAILY SUPPLEMENT 12/08/17 Unknown History tablet) sertraline 100 mg tablet 100 mg PO Q24H 03/01/21 Unknown History amlodipine 5 mg tablet 5 mg PO DAILY 02/26/25 03/02/25 03:00 History bupropion HCl 150 mg 24 hr tablet, 150 mg PO DAILY 02/26/25 Unknown History extended release olmesartan 20 mg tablet 20 mg PO DAILY 02/26/25 03/02/25 03:00 History quetiapine 25 mg tablet 25 mg PO QHS 02/26/25 Unknown History Allergy/AdvReac Type Severity Reaction Status Date / Time Seasonal Allergies: Uncoded Allergy Other Verified 03/02/25 06:19 (environmental) Surgical History History of hysterectomy History of D&C History of oophorectomy No history of previous surgery Social History Smoking Status: Never smoker Review of Systems (Anesthesia) ROS Narrative System reviewed and no additional complaints, except as documented.
--- NOTE | 2025-03-02 06:47 | HP.PCM_ITS ---
[facility] - General General Date of Admission: 03/02/25 Date of Service: 03/02/25 Chief Complaint: Screening colonoscopy HPI Narrative DONNA SAVAGE, is a 60 F who presents [today for screening colonoscopy. She had a colonoscopy back in 2010 which was normal. She is not having any abdominal pain, cramping, chest pain or shortness of breath. She has past medical history of mild hypertension and mild depression which are controlled medications.] [facility] Medical History Wears glasses Depression Anxiety Gastric reflux Non-smoker Hypertension Home Medications ?Medication ?Instructions ?Recorded ?Last Taken ?Type fluticasone propionate 50 2 spray DAILY ENVIRONMENTAL 12/08/17 Unknown History mcg/actuation nasal ALLERGIES spray,suspension multivitamin (Multiple Vitamins 1 ea PO DAILY SUPPLEME NT 12/08/17 Unknown History tablet) sertraline 100 mg tablet 100 mg PO Q24H 03/01/21 Unkn own History amlodipine 5 mg tablet 5 mg PO DAILY 02/26/2503/02 03:00 History bupropion HCl 150 mg 24 hr tablet, 150 mg PO DAILY 11/15 Unknown History extended release olmesartan 20 mg tablet 20 mg PO DAILY 02/26/2502/21 03:00 History quetiapine 25 mg tablet 25 mg PO QHS 02/26/25 Unknow n History Allergy/AdvReac Type Severity Reaction Status Date / Time Seasonal Allergies: Uncoded Allergy Other Verified 03/02/25 06:19 (environmental) Surgical History History of hysterectomy History of D&C History of oophorectomy No history of previous surgery Social History Smoking Status: Never smoker ROS Constitutional Constitutional: Denies fatigue, fever(s), poor appetite, weight gain or weight loss Gastrointestinal Gastrointestinal: Denies belching, bloating, change in bowel habits, change in stool character, chewing difficulty, coffee ground emesis, constipation, cramping, diarrhea, dyspepsia, dysphagia, early satiety, excessive flatus, fecal incontinence, heartburn, hematemesis, hematochezia, hemorrhoids, loose stools, melena, nausea, odynophagia, rectal bleeding, tenesmus, vomiting or weight changes Vital Signs Vital Signs Vital Signs: 03/02/25 06:22 03/02/25 06:22 03/02/25 06:36 Temperature 97 F L 97 F L Temperature Source Temporal Pulse Rate 65 65 Respiratory Rate 16 16 Respiratory Pattern Normal Blood Pressure 133/73 H 133/73 H Blood Pressure Mean 93 Blood Pressure Source Monitor Blood Pressure Position Semi-Fowlers Blood Pressure Location Right Arm Pulse Ox 98 98 Oxygen Delivery Method Room Air Room Air Weight Weight: 173 lb 11.588 oz Body Mass Index (BMI) 29.8 Physical Exam Const alert, oriented x3, no apparent distress and healthy appearing General Appearance: cooperative GI normal to inspection, nondistended, normoactive bowel sounds, soft to palpation, non-tender and non-distended Percussion: normal to percussion Rectal Exam: deferred Assessment & Plan Assessment/Plan (1) Encounter for screening colonoscopy: PLAN: She was explained alternatives, risk and benefits include not withstanding bleeding, infection, sepsis, perforation, need for surgery . She will have an ASA of 3.
--- NOTE | 2025-03-02 07:30 | PCM.POST.ANE ---
Anesthesia: Postop Eval I Current Vital Signs Temperature: 97.1 F Pulse Rate: 68 Blood Pressure: 90/42 Respiratory Rate: 20 Pulse Ox: 98 Assessment Airway patent: Yes Spontaneous unlabored respirations: Yes nausea: No Vomiting: No Anesthesia Complication: No Fluid Hydration Crystalloid volume administer (ml): 200 Total IV fluid infused: 200 Progress Note Anesthesia document: Postop Eval 1 completed: Yes
--- NOTE | 2025-03-02 07:31 | OP.COLON_ITS ---
Patient Name: Anabella Kapadia Procedure Date: 03/02/2025 7:07 AM Date of : 1965 Age: 60 Procedure: Colonoscopy Indications: Screening for colorectal malignant neoplasm Providers: Miki Wells DO Referring MD: Miki Wells DO Medicines: Monitored Anesthesia Care Patient Profile: This is a 60 year old female. Refer to note in patient chart for documentation of history and physical. Last Colonoscopy: more than 10 years ago. Complications: No immediate complications. Procedure: Pre-Anesthesia Assessment: - Prior to the procedure, a History and Physical was performed, and patient medications and allergies were reviewed. The patient is competent. The risks and benefits of the procedure and the sedation options and risks were discussed with the patient. All questions were answered and informed consent was obtained. Patient identification and proposed procedure were verified by the physician in the pre-procedure area. Mental Status Examination: alert and oriented. Airway Examination: normal oropharyngeal airway and neck mobility. Respiratory Examination: clear to auscultation. CV Examination: normal. Prophylactic Antibiotics: The patient does not require prophylactic antibiotics. Prior Anticoagulants: The patient has taken no anticoagulant or antiplatelet agents except for NSAID medication. ASA Grade Assessment: II - A patient with mild systemic disease. After reviewing the risks and benefits, the patient was deemed in satisfactory condition to undergo the procedure. The anesthesia plan was to use monitored anesthesia care (MAC). Immediately prior to administration of medications, the patient was re-assessed for adequacy to receive sedatives. The heart rate, respiratory rate, oxygen saturations, blood pressure, adequacy of pulmonary ventilation, and response to care were monitored throughout the procedure. The physical status of the patient was re-assessed after the procedure. After I obtained informed consent, the scope was passed under direct vision. Throughout the procedure, the patient's blood pressure, pulse, and oxygen saturations were monitored continuously. The pediatric colonoscope was introduced through the anus and advanced to the cecum, identified by appendiceal orifice and ileocecal valve. The colonoscopy was performed without difficulty. The patient tolerated the procedure well. The quality of the bowel preparation was adequate. The ileocecal valve, appendiceal orifice, and rectum were photographed. Scope In: 7:16:31 AM Scope Withdrawal Time 0 hours 7 minutes 44 seconds Scope Out: 7:28:30 AM Total Procedure Duration Time 0 hours 11 minutes 59 seconds Findings: The perianal and digital rectal examinations were normal. There was a large lipoma, in the ascending colon. The exam was otherwise without abnormality on direct and retroflexion views. Many small-mouthed diverticula were found in the recto-sigmoid colon and sigmoid colon. Impression: - Large lipoma in the ascending colon. - The examination was otherwise normal on direct and retroflexion views. - No specimens collected. Recommendation: - Discharge patient to home. - Resume previous diet. - Continue present medications. - Repeat colonoscopy in 10 years for screening purposes. Procedure Code(s): --- Professional --- G0121, Colorectal cancer screening; colonoscopy on individual not meeting criteria for high risk CPT copyright 2021 [employer]. All rights reserved. The codes documented in this report are preliminary and upon renal technician review may be revised to meet current compliance requirements. Miki Wells DO 03/02/2025 7:31:27 AM This report has been signed electronically. Number of Addenda: 0 Note Initiated On: 03/02/2025 7:07 AM
--- NOTE | 2025-03-02 07:32 | OP.PROVAT_ITS ---
03/02/2025 Albert Johnson Re : Colonoscopy procedure for Anabella Kapadia Dear Alex This procedure was performed on Sunday, March 02, 2025. My impressions and recommendations are as follows: Impressions : - Large lipoma in the ascending colon. - The examination was otherwise normal on direct and retroflexion views. - No specimens collected. Recommendations : - Discharge patient to home. - Resume previous diet. - Continue present medications. - Repeat colonoscopy in 10 years for screening purposes. My findings are described in the full procedure note, which is enclosed. If I can be of further assistance, please feel free to contact me at . Sincerely, Miki Wells, 03/02/2025 7:31:27 AM This report has been signed electronically.
--- NOTE | 2025-03-02 12:00 | POSTOPAN2_ITS ---
Anesthesia Postop Eval I Sum Postop Eval Completion status Anesthesia document: Postop Eval 1 completed: Yes Anesthesia Postop Eval I Summary Anesthesia Postop Eval I Summary: Anesthesia Postop Eval I: Assessment Summary Airway patent Yes 03/02/25 07:30 FLIGHT MANAGER.CSIR Spontaneous unlabored Yes 03/02/25 07:30 FLIGHT MANAGER.CSIR respirations Mental status nausea No 03/02/25 07:30 FLIGHT MANAGER.CSIR Vomiting No 03/02/25 07:30 FLIGHT MANAGER.CSIR Anesthesia Postop Eval I: Fluid Summary Crystalloid volume administer 200 03/02/25 07:30 FLIGHT MANAGER.CSIR (ml) Colloids volume administered ( ml) Blood Product volume administered (ml) Total IV fluid infused 200 03/02/25 07:30 FLIGHT MANAGER.CSIR Anesthesia Postop Eval I: Summary Notes Anesthesia Complication No 03/02/25 07:30 FLIGHT MANAGER.CSIR Anesthesia Complication Comment: Post-operative progress note Anesthesia: Postop Eval II Evaluation Mental status: Awake and Calm Pain Level: 0 nausea: No Vomiting: No Complications Anesthesia Complication: No
--- NOTE | 2025-03-02 12:00 | PCM.POSTANE2 ---
Anesthesia Postop Eval I Sum Postop Eval Completion status Anesthesia document: Postop Eval 1 completed: Yes Anesthesia Postop Eval I Summary Anesthesia Postop Eval I Summary: Anesthesia Postop Eval I: Assessment Summary Airway patent Yes 03/02/25 07:30 PATIENT SUPPORT ASSOCIATE.CSIR Spontaneous unlabored Yes 03/02/25 07:30 PATIENT SUPPORT ASSOCIATE.CSIR respirations Mental status nausea No 03/02/25 07:30 PATIENT SUPPORT ASSOCIATE.CSIR Vomiting No 03/02/25 07:30 PATIENT SUPPORT ASSOCIATE.CSIR Anesthesia Postop Eval I: Fluid Summary Crystalloid volume administer 200 03/02/25 07:30 PATIENT SUPPORT ASSOCIATE.CSIR (ml) Colloids volume administered ( ml) Blood Product volume administered (ml) Total IV fluid infused 200 03/02/25 07:30 PATIENT SUPPORT ASSOCIATE.CSIR Anesthesia Postop Eval I: Summary Notes Anesthesia Complication No 03/02/25 07:30 PATIENT SUPPORT ASSOCIATE.CSIR Anesthesia Complication Comment: Post-operative progress note Anesthesia: Postop Eval II Evaluation Mental status: Awake and Calm Pain Level: 0 nausea: No Vomiting: No Complications Anesthesia Complication: No
== END 2025-03-02 08:10 | disposition home or self-care (01) ==
LOC: EN 06:02 → AC 06:03
PROVIDERS: PCP Family Medicine; Referring Provider Family Medicine; Visit Provider Internal Medicine Gastroenterology
PROC: 0DJD8ZZ Inspection of Lower Intestinal Tract, Via Natural or Artificial Opening Endoscopic (ICD-10-PCS; CPT 45378; principal; 2025-03-02 06:55)
DX: Z12.11 Encounter for screening for malignant neoplasm of colon (principal); I10 Essential (primary) hypertension; Z90.710 Acquired absence of both cervix and uterus; F32.A Depression, unspecified; Z79.899 Other long term (current) drug therapy; F41.9 Anxiety disorder, unspecified; D17.5 Benign lipomatous neoplasm of intra-abdominal organs; K57.30 Diverticulosis of large intestine without perforation or abscess without bleeding
CPT/HCPCS: 45378; J2405

== ENCOUNTER → 2025-04-16 | Outpatient (CLI) | payer OTHER, SELFPAY ==
--- NOTE | 2025-04-16 08:43 | BI_ITS ---
EXAM: SCRN MAMM (CAD)W/ATTILA BILAT DATE: 04/16/2025 CLINICAL HISTORY: F, Age 60 y/o , SCREENING TECHNIQUE: Procedure Code: [id number] Modality: MG Procedure: SCRN MAMM (CAD)W/ATTILA BILAT COMPARISON: Prior exam(s) were compared FINDINGS: TISSUE DENSITY: There are scattered areas of fibroglandular density. Bilateral Breast Mammographic Findings: No significant masses, calcifications or other abnormalities are identified. BI/SCRN MAMM (CAD)W/ATTILA BILAT IMPRESSION: No mammographic evidence of malignancy in either breast. OVERALL FINAL ASSESSMENT BI-RADS 1: NEGATIVE. RECOMMENDATION: Routine annual follow-up in 1 Year Additional Recommendation none A letter with findings and recommendations will be mailed to the patient. Reading Location: [id number]
== END | disposition home or self-care (01) ==
LOC: OPBI 08:42
PROVIDERS: PCP Family Medicine; Referring Provider Family Medicine; Visit Provider Family Medicine
DX: Z12.31 Encounter for screening mammogram for malignant neoplasm of breast (principal)
CPT/HCPCS: 77063; 77067